=== PATIENT | female | born 1960 | race Caucasian/White ===

== ENCOUNTER 2017-11-08 09:22 | Emergency (ER) | payer OTHER ==
[2017-11-08 09:34] VITALS: BP 122/43; PULSE 57; TEMP 98.6; BMI 32.0
[2017-11-08] MEDS ORDERED: ONDANSETRON *ODT* 4 MG TABLET SL ONE (10:50)
--- NOTE | 2017-11-08 10:50 | PDOC ---
History of Present Illness <Manjit Hall - Last Filed: 11/08/17 14:07> - General History Source: Patient Exam Limitations: No Limitations - History of Present Illness Initial Comments: 11/08/17 12:30 The patient is a 57 year old female, with a significant PMH of fatty liver, who presents to the emergency department with 2 weeks of intermittent right flank pain. The patient states the intermittent right flank pain has been waxing and waning in intensity, last for approx. 1 hour before going away on its own, worse with walking, non radiating, and associated with nausea and shortness of breath. The patient states the right flank pain was rated a 10 in intensity last night and she noted a subjective fever and chills. She states she took Tylenol with minimal relief. The patient states that at presentation the right flank pain is rated a 4 in intensity. The patient denies vomit, diarrhea, constipation, chest pain, headache and dizziness. Denies dysuria, frequency, urgency and hematuria. Allergies: NKA Social history: Cholecystectomy, hysterectomy PCP: Dr. Munira Zuleta <Phil Serra - Last Filed: 11/08/17 14:12> - General Chief Complaint: Pain Stated Complaint: RT SIDE PAIN Time Seen by Provider: 11/08/17 09:45 Past History - Past Medical History COPD: No Liver Disease: Yes (fatty,enlarged) - Surgical History Cholecystectomy: Yes - Suicide/Smoking/Psychosocial Hx Smoking History: Never smoked Have you smoked in the past 12 months: No Information on smoking cessation initiated: No Hx Alcohol Use: No Drug/Substance Use Hx: No Substance Use Type: None <Manjit Hall - Last Filed: 11/08/17 14:07> <Phil Serra - Last Filed: 11/08/17 14:12> - Past Medical History Allergies/Adverse Reactions: Allergies Allergy/AdvReac Type Severity Reaction Status Date / Time No Known Allergies Allergy Verified 11/08/17 09:24 Home Medications: Ambulatory Orders Ibuprofen 400 mg PO QID PRN #30 tablet 11/08/17 Review of Systems - Review of Systems Comments:: 11/08/17 12:30 CONSTITUTIONAL: Reported: (+) Subjective fever. (+) Chills. No reported: Diaphoresis, Generalized Weakness, Malaise, Loss of Appetite HEENT: No reported: Rhinorrhea, Nasal Congestion, Throat Pain, Throat Swelling, Difficulty Swallowing, Mouth Swelling, Ear Pain, Eye Pain, Visual Changes CARDIOVASCULAR: No reported: Chest Pain, Syncope, Palpitations, Irregular Heart Rate, Lightheadedness, Peripheral Edema RESPIRATORY: Present: (+) Shortness of breath. No reported: Cough, SOB with Exertion, Orthopnea, Wheezing, Stridor, Hemoptysis GASTROINTESTINAL: Present: (+) Nausea. No reported: Abdominal pain, Abdominal Distension, Vomiting, Diarrhea, Constipation, Melena, Hematochezia GENITOURINARY: Present: (+) Right flank pain. No reported: Dysuria, Frequency, Urgency, Hesitancy,Genital Pain MUSCULOSKELETAL: No reported: Myalgia, Arthralgia, Joint Swelling, Back pain, Neck Pain SKIN: No reported: Rash, Itching, Pallor HEMEATOLOGIC/IMMUNOLOGIC: No reported: Easy Bleeding, Easy Bruising, Lymphadenopathy, Frequent infections ENDOCRINE: No reported: Unexplained Weight Gain, Unexplained Weight Loss, Heat Intolerance , Cold Intolerance NEUROLOGIC: No reported: Headache, Focal Weakness, Paresthesias, Vertigo, Lightheadedness, Unsteady Gait, Seizure, Mental Status Changes, Incontinence PSYCHIATRIC: No reported: Anxiety, Depression <Phil Serra - Last Filed: 11/08/17 14:12> *Physical Exam - Vital Signs Last Vital Signs Temp Pulse Resp BP Pulse Ox 98.6 F 57 L 18 122/43 100 11/08/17 09:26 11/08/17 09:26 11/08/17 09:26 11/08/17 09:26 11/08/17 09:26 <Manjit Hall - Last Filed: 11/08/17 14:07> - Vital Signs Last Vital Signs Temp Pulse Resp BP Pulse Ox 98.6 F 57 L 18 122/43 100 11/08/17 09:26 11/08/17 09:26 11/08/17 09:26 11/08/17 09:26 11/08/17 09:26 - Physical Exam Comments: 11/08/17 12:30 GENERAL: The patient is awake, alert, and fully oriented, Nontoxic - in no acute distress. HEAD: Normocephalic, atraumatic. EYES: extraocular movements intact, sclera anicteric, conjunctiva clear. ENT: Normal voice, Moist mucous membranes. NECK: Normal range of motion, supple LUNGS: Breath sounds equal, clear to auscultation bilaterally. No wheezes, no rhonchi, no rales. HEART: Regular rate and rhythm, without murmur, rub or gallop. ABDOMEN: Soft, nontender, No guarding, no rebound.No CVA tenderness EXTREMITIES: Normal range of motion, no edema. No cyanosis. No erythema, or tenderness. NEUROLOGICAL: No facial assymetry, Normal speech, PSYCH: Normal mood, normal affect. SKIN: Warm, Dry, normal turgor, No rashes on flank <Phil Serra - Last Filed: 11/08/17 14:12> Moderate Sedation - Procedure Monitoring Vital Signs: Vital Signs Temp Pulse Resp BP Pulse Ox 98.6 F 57 L 18 122/43 100 11/08/17 09:26 11/08/17 09:26 11/08/17 09:26 11/08/17 09:26 11/08/17 09:26 <Manjit Hall - Last Filed: 11/08/17 14:07> - Procedure Monitoring Vital Signs: Vital Signs Temp Pulse Resp BP Pulse Ox 98.6 F 57 L 18 122/43 100 11/08/17 09:26 11/08/17 09:26 11/08/17 09:26 11/08/17 09:26 11/08/17 09:26 <Phil Serra - Last Filed: 11/08/17 14:12> ED Treatment Course - LABORATORY CBC & Chemistry Diagram: 11/08/17 10:56 11/08/17 10:56 <Manjit Hall - Last Filed: 11/08/17 14:07> - LABORATORY CBC & Chemistry Diagram: 11/08/17 10:56 11/08/17 10:56 - ADDITIONAL ORDERS Additional order review: Laboratory Results 11/08/17 11/08/17 10:56 10:36 Sodium 142 Potassium 3.8 Chloride 107 Carbon Dioxide 30 Anion Gap 5 L BUN 15 Creatinine 0.7 Creat Clearance w eGFR > 60 Random Glucose 98 Calcium 8.7 Total Bilirubin 0.4 AST 28 ALT 36 Alkaline Phosphatase 88 Total Protein 7.6 Albumin 3.6 Urine Color Yellow Urine Appearance Clear Urine pH 6.0 Ur Specific [place] 1.025 Urine Protein Negative Urine Glucose (UA) Negative Urine Ketones Negative Urine Blood Negative Urine Nitrite Negative Urine Bilirubin Negative Urine Urobilinogen 4.0 e.u/dl H Ur Leukocyte Esterase Negative 11/08/17 10:56 RBC 4.76 MCV 82.6 MCHC 32.4 RDW 14.6 MPV 11.2 H Neutrophils % 65.9 Lymphocytes % 22.7 Monocytes % 7.1 Eosinophils % 3.3 Basophils % 1.0 - RADIOLOGY Radiograph Interpretation: 11/08/17 14:12 EXAM#: TYPE/EXAM: RESULT: [id number] CT/SPIRAL- RENAL-STONE CT INDICATION: Right-sided back pain. TECHNIQUE: CT scan of the abdomen and pelvis without oral contrast and without intravenous contrast. COMPARISON: None available. FINDINGS: Evaluation of the solid viscera, bowel and vessels is limited without contrast. Normal size and position of the kidneys. There is a 2 mm nonobstructing calculus in a mid pole calyx of the right kidney. There is no left renal calculus. There are no ureteral calculi. There is no obstructive uropathy. There is a 1.8 x 1.6 cm cortical cyst in the upper pole of the left kidney. There is linear scarring versus atelectasis in the anterior left lung base. The visualized lung bases are otherwise clear. The heart is normal size. Normal liver size and contour. There is hepatic steatosis. A punctate calcification in the right hepatic lobe is presumably the sequela of prior granulomatous disease. Status post cholecystectomy. The common bile duct is not dilated. There is fatty involution of the pancreatic head and body. Normal size spleen. There is no adrenal gland mass or nodule. The large and small bowel is normal caliber with no definite wall thickening. A normal-appearing appendix is visualized. There is no intraperitoneal free air or free fluid. The urinary bladder is collapsed, limiting evaluation. Within these limitations , there is no definite calculus within the urinary bladder. The uterus is surgically absent. Normal caliber abdominal aorta. There are no definite pathologically enlarged lymph nodes by CT size criteria within the abdomen or pelvis. There is a tiny fat-containing umbilical hernia. There is a small left inguinal hernia containing fat only. No acute fracture in the visualized osseous structures. There is lumbar spondylosis. IMPRESSION: 1. A 2 mm nonobstructing right renal calculus. No obstructive uropathy. No evidence of ureteral or urinary bladder calculi. 2. Hepatic steatosis. Reported By: Aiden Adler DO - Medications Given in the ED: ED Medications Discontinued Medications Generic Name Dose Route Start Last Admin Trade Name Yayo PRN Reason Stop Dose Admin Ondansetron HCl 4 mg 11/08/17 10:50 11/08/17 10:56 Zofran Odt - SL 11/08/17 10:51 4 mg ONCE ONE Administration <Phil Serra - Last Filed: 11/08/17 14:12> Medical Decision Making - Medical Decision Making 11/08/17 10:50 57y F hx fatty liver, s/p cholecystectomy presetns with intermittent R flank pain for the past 2 weeks, but worsened last night, typically episodic lasting for an hour at a time associated with nausea/sob when she gets it, and seems somewhat positional, denies any cp, field, abd pain, vomiting, diaprhosis, pt does endorse subjective fever last night. On exam the patient is well-appearing, no acute distress, with no CVA tenderness , soft nontender abdomen, no focal tenderness in the flank or rashes noted. Differential for the patient's symptoms includes possible kidney stone, MSK cause The patient declines any pain medicine at this time will check basic labs, urine Zofran for nausea Will reassess A portion of this note was documented by scribe services under my direction. I have reviewed the details of the note, within reason, and agree with the documentation with the following case summary and management plan written by me 11/08/17 14:08 labs reviewed - unremarkble CT noted for 2mm nonobstructive stone in the kidney, but no uretrolithisis - suspect her pain may be muscular in nature will recommend supportive care with motrin/tyelnol will dc the pt with pmd fu Return precautions were discussed I discussed the physical exam findings, ancillary test results and final diagnoses with the patient. I answered all of the patient's questions. The patient was satisfied with the care received and felt comfortable with the discharge plan and treatment plan. The patient will call their primary care physician within 24 hours to arrange follow-up and will return to the Emergency Department with any new, persistent or worsening symptoms. <Manjit Hall - Last Filed: 11/08/17 14:07> *DC/Admit/Observation/Transfer - Discharge Dispostion Decision to Admit order: No <Manjit Hall - Last Filed: 11/08/17 14:07> - Attestations Scribe Attestion: 11/08/17 12:31 Documentation prepared by Phil Serra, acting as medical technologist for Manjit Hall MD. <Phil Serra - Last Filed: 11/08/17 14:12> Diagnosis at time of Disposition: Kidney stone on right side, Flank pain - Discharge Dispostion Disposition: HOME - Prescriptions Prescriptions: Ibuprofen 400 mg PO QID PRN #30 tablet PRN Reason: Pain - Referrals Referrals: Munira Zuleta [Primary Care Provider] - - Patient Instructions Printed Discharge Instructions: DI for Kidney Stones Additional Instructions: Return to the emergency department immediately with ANY new, persistent or worsening symptoms including worsening abdominal pain, fevers, inability to tolerate oral intake, chest pain, shortness of breath or any other concerns. Your CAT scan showed a small kidney stone inside the kidney, this is probably not the cause of your pain I suspect the cause of your pain may be muscular in nature. Take Motrin and Tylenol as needed for your pain. Stay well hydrated. You MUST call and follow up with your doctor in a few days for reassessment. Your emergency department visit is not complete without a followup with your doctor for reevaluation. Please make sure your doctor reviews the results of your emergency evaluation. - Post Discharge Activity
[2017-11-08] MEDS ORDERED: ONDANSETRON *ODT* 4 MG TABLET ONE (10:59)
[2017-11-08 11:13] LABS: EOS % 3.3 % (0-4.5); HEMATOCRIT 39.4 % (32.4-45.2); HEMOGLOBIN 12.8 GM/dL (10.7-15.3); LYMPH % 22.7 % (8-40); MCH 26.8 pg (25.7-33.7); MCHC 32.4 g/dl (32.0-36.0); MEAN CELL VOLUME 82.6 fl (80-96); MEAN PLT VOLUME 11.2 fl (7.5-11.1); MONO % 7.1 % (3.8-10.2); NEUT % 65.9 % (42.8-82.8); PLATELET COUNT 171 K/MM3 (134-434); RBC 4.76 M/mm3 (3.60-5.2); RDW 14.6 % (11.6-15.6); WHITE BLOOD COUNT 8.9 K/mm3 (4.0-10.0)
[2017-11-08 11:17] LABS: URINE APPEARANCE CLEAR; URINE BILIRUBIN NEGATIVE (<2.0 mg/dL); URINE COLOR YELLOW; URINE GLUCOSE (UA) NEGATIVE (NEGATIVE); URINE KETONE NEGATIVE (NEGATIVE); URINE LEUK ESTERASE NEGATIVE (NEGATIVE); URINE NITRITE NEGATIVE (NEGATIVE); URINE PROTEIN NEGATIVE (NEGATIVE); URINE UROBILINOGEN 4.0 E.U/dl mg/dL (0.2-1.0)
[2017-11-08 11:37] LABS: ALBUMIN 3.6 g/dl (3.4-5.0); ANION GAP 5 (8-16); BILIRUBIN,TOTAL 0.4 mg/dL (0.2-1.0); BLOOD UREA NITROGEN 15 mg/dL (7-18); CALCIUM 8.7 mg/dL (8.5-10.1); CHLORIDE 107 mmol/L (98-107); CO2 30 mmol/L (21-32); CREATININE 0.7 mg/dL (0.55-1.02); GLUCOSE,RANDOM 98 mg/dL (74-106); POTASSIUM 3.8 mmol/L (3.5-5.1); SGOT/AST 28 U/L (15-37); SGPT/ALT 36 U/L (12-78); SODIUM 142 mmol/L (136-145); TOT PROT 7.6 g/dl (6.4-8.2)
[2017-11-08 11:39] LABS: ALK PHOS 88 U/L (45-117)
[2017-11-08] MEDS ORDERED: IBUPROFEN 600 MG TABLET (FP) PO ONE ×2 (13:48→14:22)
== END 2017-11-08 14:34 | disposition home or self-care (01) ==
LOC: JER 09:22
DX: N20.0 Calculus of kidney (principal); K76.0 Fatty (change of) liver, not elsewhere classified
CPT/HCPCS: 36415; 74176; 80053; 81003; 85025; 87086; 87186; 99283-25; Q0162

== ENCOUNTER 2023-06-23 14:09 | Emergency (ER) | payer OTHER ==
[2023-06-23 14:23] VITALS: BP 104/50; PULSE 60; RESP 17; TEMP 97.8; BMI 34.0
[2023-06-23] MEDS ORDERED: ACETAMINOPHEN 500 MG TABLET (FP) PO ONE (14:47)
== END 2023-06-23 17:16 | disposition home or self-care (01) ==
LOC: JERFT 14:09
DX: M25.561 Pain in right knee (principal)
CPT/HCPCS: 73562-TC-RT-FY; 99283-25

== ENCOUNTER 2024-11-29 06:02 | Day surgery (SDC) | payer OTHER ==
[2024-11-26 14:47] VITALS: BMI 34.9
[2024-11-29 12:55] VITALS: TEMP 97.3
[2024-11-29 13:10] VITALS: BP 129/50; PULSE 43; RESP 16
== END 2024-11-29 13:00 | disposition home or self-care (01) ==
LOC: JASU-ENDO 06:02
PROVIDERS: ATTEND Internal Medicine Gastroenterology
PROC: 0DBN8ZX Excision of Sigmoid Colon, Via Natural or Artificial Opening Endoscopic, Diagnostic (ICD-10-PCS; principal; 2024-11-29 10:45)
DX: Z12.11 Encounter for screening for malignant neoplasm of colon (principal); K63.5 Polyp of colon; K64.8 Other hemorrhoids
CPT/HCPCS: 88305-TC